=== PATIENT | male | born 1960 | race Caucasian/White ===

== ENCOUNTER → 2017-12-03 | Outpatient (CLI) | payer OTHER ==
[~2017-12-03] MED LIST: ASA5UEC; IBUPROFEN 400400 M1 PO; NOHOMEMEDICATIONS
== END ==
LOC: BC 09:48 → ULTRA 09:48
DX: N63.10 Unspecified lump in the right breast, unspecified quadrant (principal); K76.0 Fatty (change of) liver, not elsewhere classified; N28.89 Other specified disorders of kidney and ureter; R91.1 Solitary pulmonary nodule; R94.5 Abnormal results of liver function studies; R92.8 Other abnormal and inconclusive findings on diagnostic imaging of breast